=== PATIENT | female | born 1945 | race Caucasian/White ===

== ENCOUNTER → 2018-01-01 | Outpatient (CLI) | payer OTHER, MEDICARE ==
[~2018-01-01] VITALS: Ht 160 cm; Wt 86.6 kg
[~2018-01-01] MED LIST: AMBIEN 5 MG TABL5 M1 PO; AMITRIPTYLINE H10 M3 PO; ASPIRIN325 PO; FLEXERIL PO; HYDROXYZINE HCL25 M1 PO; NEO-SYNEPHRINE15 M3 NASAL; NEURONTIN 300300 M1 PO; TRAMADOL 50 MG50 MG PO; TYLENOL EXTRA500 MG PO
--- NOTE | ~2018-01-01 | HPC ---
[facility] [address] PAIN MANAGEMENT CONSULTATION Name: NIRAJ SARAVIA Room #: REG [facility] Aida#: [id number] Admission: 01/01/18 Attend Phys: Anshu Campos MD Discharge: Date of : 49 Report #: [id number] THIS REPORT FOR: //name// CC: CE Campos DATE OF SERVICE: 01/01/2018 CHIEF COMPLAINT: Severe back pain down the left hip and left leg as well as in the right hip when I flexed. HISTORY OF PRESENT ILLNESS: The patient is a 72-year-old female who has been referred to the pain clinic for evaluation. The patient has noted worsening of her pain since 10/2017. She does have a history of back problems. She has undergone back surgery and received a laminectomy at the L4-L5 level in 2010. Her pain has waxed and waned since then. At this juncture, she rates her pain as an 8/10. She described it as continuous, shooting, sharp, stabbing. Pain is made worse by sitting and sometimes with lying down. Also, notes that the pain has improved somewhat with physical therapy. Denies any new change in bowel or bladder dysfunction. Had an epidural steroid injection in 04/2017. Noticed that there was some improvement in that treatment. Noted that her hip pain improved somewhat. She has found use of [place] 04/02 somewhat helpful. Continues to use a nonsteroidal anti-inflammatory medication, Naprosyn. Also, has used Celebrex. She has noted improvement with physical therapy. ALLERGIES: No known drug allergies. DOES HAVE PROBLEMS WITH MOLD. POLLEN ALLERGIES WITH HAY FEVER. MEDICATIONS: Current medical regimen include aspirin 325 one p.o. b.i.d. Diego-Synephrine nasal spray, Tylenol 500 mg tablets q.i.d. as needed, Ambien 5 mg at bedtime, hydroxyzine 25 mg 1 p.o. q.i.d. PAST MEDICAL HISTORY: 1. Arthritis. 2. Chronic pain. 3. GERD. 4. Sciatic nerve pain on the left side. PAST SURGICAL HISTORY: Laminectomy L4-L5 in 2010, breast reduction 1988, cataract surgery, hand surgery on the right, and tonsillectomy. SOCIAL HISTORY: The patient is retired. She lives alone. She is , has one child. Drinks about 1-3 times per week. Education level was postgraduate. REVIEW OF SYSTEMS: Questionnaire in the chart indicates generally good health, [address] [address] PAIN MANAGEMENT CONSULTATION Name: NIRAJ SARAVIA Room #: REG [facility].#: [id number] Admission: 01/01/18 Attend Phys: Anshu Campos MD Discharge: Date of : 49 Report #: [id number] some recent weight changes, fatigue, weakness, cataracts, palpitations, varicose veins. LABORATORY: X-ray per note from her physician indicates AP pelvis and lateral of the left hip shows that the hip was well maintained. There is no evidence of fracture at this ____. Still noted previous fusion with L4-L5 grade 1 spondylolisthesis. PAIN CLINIC ASSESSMENT: 1. History of osteoarthritis. The patient has had low back surgery with rodding with surgery at L4-L5 and spondylolisthesis. 2. Height 5 feet 3 inches, Weight 191 pounds, BMI is 33. 3. Vital signs, blood pressure 116/75, pulse 97, respiratory rate 16, room air saturations 100%. 4. Pain intensity rated 8/10. 5. Fall risk. The patient does need some help walking. The patient has not fallen in the last 3 months. She does ambulate using a walker. 6. The patient is not on any blood thinners. 7. The patient is not being treated for hypertension. 8. The patient is not receiving opioid therapy for greater than 6 weeks. 9. Risk assessment tool was rated as a 1/3, which is low. 10. Functional assessment tool as 51/70 in regards to the general activity, mood, walking ability, work, relationships with others, sleep and enjoyment of life. 11. The patient denies use of recreational drugs. 12. Tobacco use, the patient is a former smoker. 13. The patient uses alcoholic beverages about 4 times weekly. PHYSICAL EXAMINATION: GENERAL: The patient is a well-developed female. Slightly obese appearance, age appears appropriate. Orientation: The patient is alert and oriented x 3. The patient's affect appears appropriate. HEENT: The patient is normocephalic, atraumatic. Extraocular eye muscles intact. Hearing is within normal limits. No complaint of nasal congestion. Buccal membranes are moist. NECK: Without masses or adenopathy, no bruits are heard. HEART: Regular rate. ABDOMEN: Nontender. MUSCULOSKELETAL: Upper extremities are judged to be 5/5 for the major muscle groups. Deep tendon reflexes are +1 to trace at the biceps bilaterally, triceps and brachioradialis is not appreciated. Sensation in the upper extremities are judged within normal limits. The patient has musculoskeletal alignment appears normal without significant scoliosis, kyphosis or lordosis. There is a well-healed scar in the L5 area. The patient complains of pain and discomfort in the left low back area and some discomfort in the right anterior superior iliac spine area. The patient notes a stabbing sensation radiating down the [facility] [address] [place] [address] PAIN MANAGEMENT CONSULTATION Name: NIRAJ SARAVIA [id number] Admission: 01/01/18 Attend Phys: Anshu Campos MD Discharge: Date of : 49 Report #: [id number] left of the sciatic outflow tract and in the area of the left buttocks and lateral thigh. Has difficulty standing on her toes, has difficulty standing on her heels because of balance. Deep tendon reflexes are difficult to assess secondary to patient's inability to comply. Muscle strength is judged to be 5/5 for the major muscle groups in the lower extremity. The patient ambulates with use of a cane. IMPRESSION: 1. Lumbar radiculopathy involving the low back area with pain radiating down into the left buttocks to the level of her knee - history of L5-S1 radiculopathy in the past. 2. Gastroesophageal reflux disease. 3. History of left trochanteric bursitis. RECOMMENDATIONS: We discussed treatment options with the patient. A model was used to indicate the area of probable pathology. We explained the risks and benefits of the procedure. They include improved pain relief, possible complications are, but not limited to infection, increased muscle soreness, headache, bleeding, nerve damage. The patient elects to proceed. She will try a more conservative approach at this juncture. If her pain continues, she will return to the pain clinic at which time she will then undergo a transforaminal epidural steroid injection. The patient has not tried gabapentin to help with the pain. She has not used Elavil and is sleeping poorly. We have discussed the possibility of Elavil causing some problems in older patients with hypotension and problems with standing. She states that she will monitor for this. If she notes any problems, she will stop taking this medication. She will follow up in the future as needed. We would like to thank you for letting us participate in her care. We hope she continues to improve. <ELECTRONICALLY SIGNED> By: Anshu Campos MD 01/20/18 [id number] [id number] Anshu Campos MD /[facility]
[2018-01-01 10:24] VITALS: BP 116/75
== END ==
LOC: PAIN 07:01
DX: M54.16 Radiculopathy, lumbar region (principal); K21.9 Gastro-esophageal reflux disease without esophagitis; M70.62 Trochanteric bursitis, left hip; Y93.89 Activity, other specified